=== PATIENT | female | born 2000 | race Caucasian/White ===

== ENCOUNTER 2023-07-15 18:51 | Emergency (ER) | payer BC, SELFPAY ==
[2023-07-15 18:58] VITALS: BP 150/96; PULSE 85; RESP 18; TEMP 36.2; O2SAT 100; BMI 22.1
--- NOTE | 2023-07-15 19:16 | PC.NURSE ---
Pt states she works at [employer] o meal, no recent travel, no antibiotic use. has used bathroom three times since arrival to ED.
[2023-07-15 19:17] VITALS: BP 133/98; BP 139/95; BP 143/100; PULSE 77; PULSE 87; PULSE 99
--- NOTE | 2023-07-15 19:22 | ED_ITS ---
HPI - Nausea/Vomiting/Diarrhea General Chief complaint: Diarrhea Stated complaint: Diarrhea 5 days Time Seen by Provider: 07/15/23 19:08 History of Present Illness HPI Narrative: This 22-year-old female comes in reporting 5 days of recurrent and persistent diarrhea. She has watery stools and when taking any food or drink it just increases. She was seen in urgent care yesterday for the same symptoms and did receive IV fluids and labs were obtained. These resulted in normal findings. Her symptoms have not improved since then. She has been taking Imodium without much relief and today also tried Kaopectate. She does not report any fevers. She does feel lightheaded at times but arrives with normal vital signs. There is no report of any blood or mucus in her stools. She does not have any history recent travel and has not used antibiotics recently. She does not report any other symptoms. Related Data Home Medications Medication Instructions Recorded Confirmed loperamide [Imodium] PO 07/14/23 07/14/23 norgestrel 0.3 mg-ethinyl 1 tab PO DAILY 07/14/23 07/14/23 estradiol 30 mcg tablet (Turqoz (28)) Previous Rx's Medication Instructions Recorded diphenoxylate-atropine 2.5 1 tab PO DAILY #15 tabs 07/15/23 mg-0.025 mg tablet (Lomotil) Allergies Allergy/AdvReac Type Severity Reaction Status Date / Time amoxicillin Allergy Verified 07/14/23 08:33 Review of Systems Status of ROS: Reports: 10 or more systems reviewed and unremarkable except as noted in History and below Narrative: Constitutional: No fevers, no weight gain or loss. Eyes: No discharge. No vision changes. HENT: No congestion, no sore throat, no ear pain. Cardiovascular: No chest pain, no palpitations. Respiratory: No shortness of breath, no wheezes, no cough. Gastrointestinal: Occasional brief abdominal pains. Persistent diarrhea with 1 or 2 episodes of emesis. Genitourinary: No dysuria, no hematuria. Musculoskeletal: Normal range of motion. Skin: No rashes, no pruritis. Neurological: No dizziness, weakness, sensory change, speech change. Endo/Heme/Allergies: No bruising or bleeding. No polydipsia. Pysch: no suicidality, no anxiety, no insomnia. All other systems reviewed and are negative. PFSH PFSH Social History Smoking Status: Never smoker Second hand tobacco smoke exposure: No How often do you have a drink containing alcohol: never How often do you have six or more drinks on one occasion: Never AUDIT-C Alcohol total score: 0 Non-prescribed substance use: denies use service: No Exam Narrative: Exam Narrative: Constitutional: Well-developed, well-nourished, no acute distress. HEENT: Normocephalic, atraumatic. Neck: Normal range of motion. Nontender. Supple. Heart: Regular. No murmurs. Normal rate. Intact distal pulses. Lungs: Clear to auscultation. No chest discomfort. No wheezes, rhonchi, or rales. Abdomen: Normal bowel sounds. Nontender. No rebound tenderness. Genitalia: Deferred. Back: No midline tenderness. Normal range of motion. Extremities: Normal range of motion. No injury. Skin: Intact. No rash. Warm. No erythema or pallor. Neurologic: No altered sensation. No weakness. Alert and oriented. Psychiatric: No suicidality. No anxiety or depression. No insomnia. Nursing notes and vitals signs are reviewed. Const: Vital Signs, click to edit/add: Vital Signs - 24 hr 07/15/23 18:58 07/15/23 19:17 Temperature 97.1 F L Pulse Rate [Pulse Oximeter] 85 Pulse Rate [orthos tatic lying] 77 Pulse Rate [orthos tatic sitting] 87 Pulse Rate [orthos tatic standing] 99 Respiratory Rate 18 Blood Pressure [Ri t Upper Arm] 150/96 H Blood Pressure [or thostatic lying] 143/100 H Blood Pressure [or thostatic sitting] 133/98 H Blood Pressure [or thostatic standing ] 139/95 H Pulse Oximetry 100 Oxygen Delivery Me thod Room Air Course Vital Signs Vital signs: Initial Vital Signs Temperature 97.1 F L 07/15/23 18:58 Temperature Source Temporal Artery Scan 07/15/23 18:58 Pulse Rate 85 07/15/23 18:58 Respiratory Rate 18 07/15/23 18:58 Blood Pressure 150/96 H 07/15/23 18:58 Blood Pressure Mean 114 H 07/15/23 18:58 Blood Pressure Position Sitting 07/15/23 18:58 Pulse Oximetry 100 07/15/23 18:58 Oxygen Delivery Method Room Air 07/15/23 18:58 Vital Signs Temperature 97.1 F L 07/15/23 18:58 Pulse Rate 85 07/15/23 18:58 Respiratory Rate 18 07/15/23 18:58 Blood Pressure 150/96 H 07/15/23 18:58 Pulse Oximetry 100 07/15/23 18:58 Oxygen Delivery Method Room Air 07/15/23 18:58 Temperature 97.1 F L 07/15/23 18:58 Pulse Rate 77 07/15/23 19:17 Respiratory Rate 18 07/15/23 18:58 Blood Pressure 143/100 H 07/15/23 19:17 Pulse Oximetry 100 07/15/23 18:58 Oxygen Delivery Method Room Air 07/15/23 18:58 MDM - Nausea/Vomiting/Diarrhea MDM Narrative Medical decision making narrative: This patient comes in with persistent diarrhea over these past 5 days. She did receive IV fluids and had labs done yesterday at an urgent care. These were repeated today with normal results. The patient did receive 2 L of normal saline intravenously. I also did provide a tablet of Lomotil to help with her symptoms. A prescription for Lomotil is also provided. She is okay to be discharged home. I did advise her regarding signs and symptoms that would indicate a need for return and re-evaluation. I encouraged her to take fluids and resume a normal diet as best as possible. Lab Data Labs: Lab Results 07/15/23 Range/Units 19:54 WBC 5.09 (4.50-11.00) K/uL RBC 5.71 H (4.00-5.20) m/uL Hgb 15.7 (12.0-16.0) gm/dL Hct 47.6 (33.0-51.0) % MCV 83 (80-100) fL MCH 28 (26-34) pg MCHC 33 (32-36) gm/dL RDW Coeff of Carrie 12.7 (11.5-15.5) % Plt Count 348 (140-440) K/uL Neut % (Auto) 53.2 (42.0-72.0) % Lymph % (Auto) 37.9 (20-44) % Greer % (Auto) 6.1 (0.0-11.0) % Eos % (Auto) 2.2 (0.0-7.0) % Baso % (Auto) 0.4 (0.0-3.0) % Neut # (Auto) 2.71 (1.7-7.0) K/uL Lymph # (Auto) 1.93 (0.90-2.90) K/uL Greer # (Auto) 0.30 (0.00-0.90) K/UL Eos # (Auto) 0.11 (0.00-0.50) K/uL Baso # (Auto) 0.02 (0.00-0.30) K/uL Abs Immat Gran (auto) 0.01 (0.00-0.30) K/uL Imm/Tot Granulo (auto) 0.2 % Sodium 144 (135-149) mmol/L Potassium 3.4 L (3.6-5.1) mmol/L Chloride 111 (96-114) mmol/L Carbon Dioxide 23 (20-32) mmol/L Anion Gap 10 (7-15) mEq/L BUN 7 (5-24) mg/dL Creatinine 0.8 (0.5-1.5) mg/dL Estimated Creat Clear 90.47 Estimated GFR 106 ml/min Glucose 95 (60-115) mg/dL Calcium 9.5 (8.4-10.6) mg/dL Discharge Plan Discharge Clinical Impression: Diarrhea Patient Disposition: Home, Self-Care Condition: Stable Additional Instructions: Take medication as needed and directed. Take frequent sips of fluids and increase foods as tolerated. Follow up with MD or return if symptoms are per sistent or worsening. Prescriptions: New diphenoxylate-atropine [Lomotil] 2.5-0.025 mg tablet 1 tab PO DAILY Qty: 15 0RF No Action loperamide [Imodium] PO Turqoz (28) 0.3-30 mg-mcg tablet 1 tab PO DAILY Follow Up/Referrals: Provider,Not a Local [Referring] - Stand Alone Forms: Modernizing Medicineth Info Instructions
[2023-07-15] MEDS: 0.9 % SODIUM CHLORIDE 1000 ml 1,000 ML IV ×2 (19:45→20:57)
[2023-07-15 19:57] LABS: Basophils Absolute Auto 0.02 K/uL (0.00-0.30); Basophils Percent Auto 0.4 % (0.0-3.0); Eosinophils Absolute Auto 0.11 K/uL (0.00-0.50); Eosinophils Percent Auto 2.2 % (0.0-7.0); Hematocrit 47.6 % (33.0-51.0); Hemoglobin* 15.7 gm/dL (12.0-16.0); Immature Granulocytes Abs Auto 0.01 K/uL (0.00-0.30); Immature Granulocytes Pct Auto 0.2 %; Lymphocytes Absolute Auto 1.93 K/uL (0.90-2.90); Lymphocytes Percent Auto 37.9 % (20-44); Mean Corpuscular HGB Conc 33 gm/dL (32-36); Mean Corpuscular Hemoglobin 28 pg (26-34); Mean Corpuscular Volume 83 fL (80-100); Monocytes Percent Auto 6.1 % (0.0-11.0); Neutrophils Absolute Auto 2.71 K/uL (1.7-7.0); Neutrophils Percent Auto 53.2 % (42.0-72.0); Platelet Count* 348 K/uL (140-440); RDW Coefficient of Variation % 12.7 % (11.5-15.5); Red Blood Count 5.71 m/uL (4.00-5.20); White Blood Count* 5.09 K/uL (4.50-11.00)
[2023-07-15 20:04] LABS: Slide Review Reflex No
[2023-07-15 20:10] LABS: Chloride* 111 mmol/L (96-114); Potassium* 3.4 mmol/L (3.6-5.1); Sodium* 144 mmol/L (135-149)
[2023-07-15 20:13] LABS: Anion Gap 10 mEq/L (7-15); Blood Urea Nitrogen* 7 mg/dL (5-24); Carbon Dioxide* 23 mmol/L (20-32); Creatinine* 0.8 mg/dL (0.5-1.5); Est. Creatinine Clearance* 90.47; Estimated Glomerular Filt Rate 106 ml/min
[2023-07-15 20:14] LABS: Calcium* 9.5 mg/dL (8.4-10.6); Glucose* 95 mg/dL (60-115)
[2023-07-15] MEDS: DIPHENOXYLATE-ATROP 2.5-0.025 TABLET 1 TAB PO (20:57)
[2023-07-15 21:58] VITALS: BP 118/68; PULSE 74; RESP 16; TEMP 36.7
== END 2023-07-15 21:58 | disposition home or self-care (01) ==
PROVIDERS: Emergency Provider Emergency Medicine Emergency Medical Services; PCP Family Medicine
DX: R19.7 Diarrhea, unspecified (principal)
CPT/HCPCS: 36415; 80048; 85025; 87045; 87046; 87077; 87427; 99283; 99284; A9270; J7030